=== PATIENT | male | born 1955 | race Caucasian/White ===

== ENCOUNTER 2024-01-14 05:56 | Day surgery (SDC) | payer OTHER, SELFPAY ==
[2023-12-27 13:02] VITALS: BMI 28.5
[2023-12-27 13:27] LABS: % Basophils 0.4 % (0-2); % Eosinophils 3.1 % (0-6); % Immature Granulocytes 0.3 % (0-0.5); % Lymphocytes 21.8 % (20.5-51.1); % Monocytes 10.3 % (1.7-9.3); % Neutrophils 64.1 % (42.2-75.2); Absolute Eosinophils 0.3 10^3/uL (0-0.7); Absolute Monocytes 0.9 10^3/uL (0.1-0.6); Absolute Neutrophils 5.8 10^3/uL (1.4-6.5); Hematocrit 40.8 % (39.0-52.0); Hemoglobin 14.3 g/dL (13.0-18.0); Mean Corpuscular Hgb 31.8 pg (27.0-31.0); Mean Corpuscular Volume 90.7 fL (80.0-94.0); Mean Platelet Volume 8.9 fL (7.4-10.4); Nucleated Red Blood Cells % 0 % (-); Platelet Count 198 10^3/uL (130-400); Red Cell Dist. Width 12.5 % (11.5-14.5)
[2023-12-27 13:35] LABS: PT 13.5 Sec (11.4-14.6)
[2023-12-27 14:52] LABS: ALT (SGPT) 29 U/L (0-50); AST (SGOT) 30 U/L (17-59); Albumin 4.6 g/dl (3.5-5.0); Alkaline Phosphatase 76 U/L (38-126); Blood Urea Nitrogen 22 mg/dl (9-20); Calcium 9.3 mg/dl (8.4-10.2); Carbon Dioxide 26 mmol/L (22-30); Chloride 103 mmol/L (98-107); Estimated Creatinine Clearance 65 ml/min; Glucose 88 mg/dl (70-99); Potassium 4.4 mmol/L (3.5-5.1); Sodium 143 mmol/L (135-145); Total Bilirubin 0.4 mg/dl (0.2-1.3); Total Protein 7.4 g/dl (6.3-8.2); eGFR > 60.00
--- NOTE | 2023-12-30 14:57 | W.PN.UPDATE ---
Update Note
Progress Note Update
Chest CT:
IMPRESSION:
1). There is a 1 cm subpleural pulmonary mass in the lateral aspect of the superior segment of the left lower lobe. This mass is probably but not definitively benign and follow-up noncontrast CT chest in 3 months and/or PET scan is recommended for
further evaluation
2). Pulmonary vein ostial measurements are given above.
3). No evidence of left atrial thrombus
--faxed and LM PCP-LM patient .
[2024-01-14] VITALS (9 sets, daily range): BP systolic 113–171; BP diastolic 64–89; BMI 27.8
[2024-01-14 08:51] LABS: ACT-LR - POC 213 Seconds (116-155)
--- NOTE | 2024-01-14 09:21 | ITS.CL.ABL ---
[facility] - Ablation
Ablation
Procedure Report:
ELECTROPHYSIOLOGY ABLATION STUDY
�
DATE:: January 14, 2024�����������������������������REFERRING: Dr. Ben Alvarado
�
INDICATION: Paroxysmal supraventricular tachycardia in the form of atrial fibrillation.��Prior history of CVA
�
HISTORY: See H and P.��Prior history of CVA
�
ANTIARRHYTHMIC DRUG: [Carvedilol
�
PRE-PROCEDURE DARWIN: No intracardiac thrombus on CT scan on intracardiac ultrasound
�
PRESENTING RHYTHM: Sinus bradycardia
�
'TIME-OUT':��called and confirmed.
�
SEDATION/ANESTHESIA:��provided via the anesthesia department using general anesthesia (LMA).
�
INTRAVENOUS/ARTERIAL ACCESS:
Right femoral venous - 8Fr
Left femoral venous - 8 Fr, 6 Fr
Syorta-wa-tjctm suture was applied to bilateral femoral venous access
Ultrasound guidance for bilateral femoral vein access was utilized by me to obtain access with demonstration of normal anatomy
CHADS-VASC Score:
�
HAS-Bled Score
�
PROCEDURE:
1.��A decapolar CS catheter was placed within the CS for mapping and pacing.��This was also used as the reference catheter for the 3-D map. Sinus pause was notable during ablation of the left superior pulmonary vein and we proceeded next to the
right pulmonary veins before returning to the left veins to minimize pause. Sinus pauses were answered with coronary sinus pacing which was capturing the ventricle and was performed throughout the duration of the left pulmonary vein ablation. The
pauses were also answered with fluids and pressor support with only transient hypotension 60s over 40s systolic.
�
2. The intracardiac ultrasound catheter was positioned in the RA to identify the FO for targeting of transseptal puncture, assist��in identification of the pulmonary vein ostia, monitoring pre and post ablation pulmonary vein flow velocities,
monitoring for 'bubble' formation during RF application as a sign of thermal injury,��and to monitor for pericardial effusion during mapping and ablation procedure.���Left atrial size, LV ejection fraction, and pulmonary vein flows were monitored
pre and post ablation procedure. The other valves were inspected and found to be free of significant regurgitation or stenosis.
�
3.��Half of the calculated heparin bolus was administered prior to the first transeptal puncture.��Transseptal puncture was performed to diagnose RA and LA pressure so that safety of LA mapping and ablation could be further assessed, and to access
the left atrium and pulmonary veins for mapping and ablation.��This entailed advancing an 16.8 [place] sheath�RF wire with dilator into the superior vena cava and withdrawing both (monitoring intracardiac ultrasound, fluoroscopy and tip pressure)
with the tip oriented toward the atrial septum.��The fossa ovalis was engaged (indicated by sudden displacement of the sheath tip as well as tenting of the fossa seen on intracardiac ultrasound).��Left atrial access required a pass with the
Brockenbrough needle extended.��Left atrial catheter position was confirmed by pressure monitoring (RA mean pressure 8 mm Hg and LA mean presure 14 mm Hg), LA saturation (99%),��as well as fluoroscopy.��The sheath was advanced over the dilator and
positioned in the left atrium.��This procedure was repeated for the Agilis sheath.��The remainder of the calculated heparin bolus was administered and heparin was
infused to maintain ACT at 300 -350 seconds throughout the case.
�
4.��RA pacing was performed via the proximal decapolar poles and LA pacing was performed via the distal decapolar poles.
�
5. A quadrapolar catheter was first positioned at the His position for His Bundle recording which was tagged via the 3-D Navex sytem, and then passed to the RVA for RV pacing and recording.
�
6. The multipolar catheter and the PFA LIPV, LSPV, RSPV and the RIPV.��
�
7.��Next, a 3-D map was created using Navex.���A 3-D reconstructed CT image was compared to the 3-D Navex map to assist in anatomic interpretation, mapping and ablation.��The CT image and the NavX image were fused.
�
8. A total of 59 PFA lesions were given with olive and basket poses to each of the 4 pulmonary veins and flower post to the posterior wall and left atrial floor. 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
from the roof down through the floor greater than 1 cm below the inferior pulmonary veins. EP study post isolation demonstrated no other nonpulmonary vein triggers for atrial fibrillation or supraventricular arrhythmia.
9. Normal sinus node and AV bryan function were noted post ablation with normal sinus node recovery times during EP study.
TOTAL FLOURO TIME: 12.2 minutes 86 mGy
�
TOTAL RF DURATION: 0 minutes
�
REVERSAL OF HEPARIN: 35 mg of protamine, slow IV administration
�
COMPLICATIONS:
None
Intracardiac US shows no pericardial effusion post ablation.
�
SUMMARY:��
Complex left atrial mapping and ablation.
Isolation of all 4 pulmonary veins and left atrial posterior wall as above.
�
RECOMMENDATIONS:
1. Out of bed and ambulate 4 hours
2. Resume anticoagulation
3.��Continue aspirin for history of coronary disease and CVA
4.��Consider same-day discharge
�
Copy to: Dr. Ben Alvarado
�
[2024-01-14] MEDS: TYLENOL 650 MG PO (10:45)
[2024-01-14 11:48] LABS: ACT-LR - POC 215 Seconds (116-155)
--- NOTE | 2024-01-14 12:18 | W.PN.UPDATE ---
Update Note
Progress Note Update
68 yo WM s/p PVI (same day). He denies cp, sob, mike clears, mild sore throat, EKG SR, b/l groins c/d/i, soft, FO8 inplace. He will resume Eliquis tonight. Activity restrictions reviewed. He will f/u Dr. Alvarado in 3 mo. He is for d/c home after 215
if groins stable and voiding.
SUMMARY:��
Complex left atrial mapping and ablation.
Isolation of all 4 pulmonary veins and left atrial posterior wall as above.
�
RECOMMENDATIONS:
1. Out of bed and ambulate 4 hours
2. Resume anticoagulation
3.��Continue aspirin for history of coronary disease and CVA
4.��Consider same-day discharge
�
Copy to: Dr. Ben Alvarado
== END 2024-01-14 14:15 | disposition home or self-care (01) ==
LOC: CATH 05:56
PROVIDERS: ATTENDING PHYSICIAN Internal Medicine Cardiovascular Disease; FAMILY PHYSICIAN Internal Medicine; OTHER PHYSICIAN Internal Medicine Interventional Cardiology
DX: I25.10 Atherosclerotic heart disease of native coronary artery without angina pectoris (principal); R07.9 Chest pain, unspecified; I48.0 Paroxysmal atrial fibrillation; I10 Essential (primary) hypertension; E78.5 Hyperlipidemia, unspecified; I25.2 Old myocardial infarction; E11.9 Type 2 diabetes mellitus without complications; R91.1 Solitary pulmonary nodule; Z79.82 Long term (current) use of aspirin; Z79.899 Other long term (current) drug therapy; Z79.02 Long term (current) use of antithrombotics/antiplatelets; Z79.01 Long term (current) use of anticoagulants; R91.8 Other nonspecific abnormal finding of lung field; Z95.5 Presence of coronary angioplasty implant and graft; I69.398 Other sequelae of cerebral infarction; I47.19 Other supraventricular tachycardia; Z90.49 Acquired absence of other specified parts of digestive tract
CPT/HCPCS: C1730; C1892; C1759; C1894; 36415; 75572; 80053; 83735; 85025; 85347; 85610; 86850; 86900; 86901; 93005; 93656; 93657; C1732; C1733; C1766; Q9967

== ENCOUNTER → 2024-06-17 10:57 | Outpatient (REF) | payer OTHER, SELFPAY | LOC: HWRAD 10:57 | PROVIDERS: ATTENDING PHYSICIAN Internal Medicine | DX: M25.551 Pain in right hip (principal) | CPT/HCPCS: 73502 ==

== ENCOUNTER → 2024-06-29 15:32 | Outpatient (REF) | payer OTHER, SELFPAY | LOC: RAD 15:32 | PROVIDERS: ATTENDING PHYSICIAN Internal Medicine Cardiovascular Disease; FAMILY PHYSICIAN Internal Medicine | DX: R91.1 Solitary pulmonary nodule (principal) | CPT/HCPCS: 71260; Q9967 ==